=== PATIENT | female | born 1965 | race Caucasian/White ===

== ENCOUNTER → 2018-09-06 14:28 | Outpatient (CLI) | payer OTHER, SELFPAY ==
--- NOTE | 2018-09-06 14:31 | DI.MRI.S_ITS ---
PROCEDURE: MR LUMBAR SPINE WO CON INDICATIONS: Lumbosacral spondylosis with left L5 radicular TECHNIQUE: Noncontrast sagittal T1 spin echo and T2 fast echo, sagittal STIR, axial T1 and T2 fast spin echo through the lumbar spine. In cases with scoliosis, additional coronal T2 fast spin echo may be performed. COMPARISON: [facility], MR, L-SPINE WITHOUT CONTRAST, 03/29/2013, 19:15. FINDINGS: Image quality: Excellent. Alignment and Curvature: There is normal bony alignment. Bone Marrow: Marrow is of normal overall signal. No acute vertebral body compression fractures. Spinal Cord: Conus medullaris terminates at the T12-L1 level where there is moderately severe degenerative disc disease and a small posterior transverse disc bulge that slightly narrows the AP dimension of the spinal canal but does not impinge on the individual nerve roots. Facet osteoarthrosis mild at this level without significant foraminal stenosis. Visualized cord demonstrates normal signal and size. Paraspinous Soft Tissues: No paravertebral masses. L1-L2: Normal appearance except for mild facet osteoarthritis. L2-L3: Degenerative disc I. reduction is mild, but there also is a mild degree of disc desiccation. Facet osteoarthritis is moderate to moderately severe, and allows grade one antral listhesis of L2 on L3. This causes mild crowding of nerve roots within the thecal sac at this level, producing mild spinal stenosis. There is associated foraminal stenosis that appears slightly greater on the left than the right, representing a progression from prior degenerative changes in 2012. L3-L4: The degenerative disc I. reduction and disc desiccation has only slightly worsened from 2012 and there is a mild posterior broad-based transverse disc bulge. Facet osteoarthritis is symmetric but moderately severe and causes mild spinal stenosis and mild to moderate foraminal stenosis with potential for significant impingement on the course of the L3 nerve roots equally. L4-L5: Normal appearance except for mild degenerative facet osteoarthritis, with no associated subluxation and only minimal foraminal stenosis. L5-S1: Normal appearance except for mild degenerative facet disease.. IMPRESSION: There has been mild interval worsening of degenerative disc disease and facet osteoarthritis producing relatively mild spinal stenosis and somewhat more prominent symmetric foraminal stenosis as discussed in detail by level in the body of the report above. No trauma is found, no prior compression fracture is seen. No disc herniation is present. Dictated by: Gunnar Gr M.D. on 09/06/2018 at 17:27 Approved by: Gunnar Gr M.D. on 09/06/2018 at 17:33
--- NOTE | 2018-09-06 14:31 | DI.MRI.S_ITS ---
PROCEDURE: MR CERVICAL SPINE WO CON INDICATIONS: Lumbosacral spondylosis with left L5 radicular TECHNIQUE: Noncontrast sagittal T1 spin echo and T2 fast spin echo, sagittal STIR, foraminal oblique sagittal T2 fast spin echo, and axial gradient echo or T2 fast spin echo through the cervical spine. COMPARISON: [facility], MR, MR LUMBAR SPINE WO CON, 09/06/2018, 15:21. FINDINGS: Image quality: Diagnostic, with note made of motion artifact. Alignment and Curvature: There is normal bony alignment. Bone Marrow: Marrow demonstrates normal overall signal. Spinal Cord: Visualized spinal cord has normal size and signal. No cerebellar tonsillar herniation. Paraspinous Soft Tissues: No paravertebral masses. Prevertebral soft tissues are normal in thickness. C2-C3: The disc height is well-preserved. Loss of disc signal is seen at this level. A mild degree of generalized disc osteophyte complex is seen. No significant neural foraminal or central canal narrowing are seen. C3-C4: The disc height is well-preserved. Loss of disc signal is seen at this level. A mild degree of generalized disc osteophyte complex is seen. Mild to moderate facet hypertrophy is seen, right worse than left. There is mild right-sided and mild to moderate left-sided neural foraminal narrowing seen. Mild central canal narrowing is seen. C4-C5: Mild loss of disc height is seen. Loss of disc signal is seen. Moderate generalized disc osteophyte complex is seen. There is moderate right-sided and mild left-sided hypertrophy seen. There is moderate to severe right-sided and mild to moderate left-sided neural foraminal narrowing seen. At least moderate central canal narrowing is seen, as on series 3 image 22. C5-C6: Mild loss of disc height is seen. Loss of disc signal is seen. Moderate generalized disc osteophyte complex is seen. There is moderate right-sided and mild left-sided facet hypertrophy seen. There is moderate to severe right-sided and mild to moderate left-sided neural foraminal narrowing seen. Moderate central canal narrowing is seen. C6-C7: Moderate loss of disc height is seen. Loss of disc signal is seen. Moderate generalized disc osteophyte complex is seen. Mild to moderate facet hypertrophy is seen. There is moderate to severe bilateral neural foraminal narrowing seen, left worse than right. Moderate to severe central canal narrowing is seen, with associated mass effect upon the ventral spinal cord, as on series 3 image 31. C7-T1: The disc height and disk signal are well-preserved. Mild to moderate disc osteophyte complex is seen. Mild facet joint hypertrophy is seen. There is moderate right-sided and mild to moderate left-sided neural foraminal narrowing seen. Mild central canal narrowing is seen. IMPRESSION: Multiple levels of cervical spine degenerative change are seen, which are most prominent at the C6-C7 level. Dictated by: Julio Calderon M.D. on 09/06/2018 at 16:26 Approved by: Julio Calderon M.D. on 09/06/2018 at 16:31
== END ==
PROVIDERS: PCP Family Medicine; Visit Provider Physical Medicine & Rehabilitation
DX: M47.27 Other spondylosis with radiculopathy, lumbosacral region (principal); M51.16 Intervertebral disc disorders with radiculopathy, lumbar region; M47.26 Other spondylosis with radiculopathy, lumbar region; M48.061 Spinal stenosis, lumbar region without neurogenic claudication; M48.02 Spinal stenosis, cervical region
CPT/HCPCS: 72141; 72148

== ENCOUNTER 2018-11-01 12:29 | Outpatient (CLI) | payer OTHER, SELFPAY ==
[2018-11-01] VITALS (7 sets, daily range): BP systolic 103–115; BP diastolic 68–83; PULSE 72–85; RESP 16–24; TEMP 36.3; O2SAT 98–100
--- NOTE | 2018-11-01 12:30 | DI.RAD.S_ITS ---
PROCEDURE: PAIN L/SI FACET INJ/BLK 1STL INDICATIONS: SPONDYLOSIS FINDINGS: Fluoroscopic spot filming was performed to verify placement of spinal needles at the L2-L3, L3-L4 facet level(s), as labeled on the films. Appropriate location(s) of the needle tip(s) was confirmed by injection of iodinated contrast. Dictated by: Chevy Dowling M.D. on 11/01/2018 at 16:34 Approved by: Chevy Dowling M.D. on 11/01/2018 at 16:35
[2018-11-01] MEDS: MIDAZOLAM 5 MG/5 ML VIAL IV (13:20)
[2018-11-01] MEDS: IOPAMIDOL 15 ML VIAL 3 ML INJ (13:27)
[2018-11-01] MEDS: BUPIVACAINE 0.5% (PF) VIAL 2 ML INJ (13:27)
[2018-11-01] MEDS: LIDOCAINE 1% 20 ML INJ 10 ML INJ (13:28)
[2018-11-01] MEDS: BETAMETHASONE 30 MG/5 ML MDV 12 MG INJ (13:29)
--- NOTE | 2018-11-01 13:31 | PC.NURSE ---
pt tolerated procedure. able to get off table with one person stand by assist. Transferred via W/C to pre procedure room for continued monitoring with Shira AL.
--- NOTE | 2018-11-01 13:35 | PM.PROC.1 ---
Procedures Date/Time Date of procedure: 11/01/18 Time of procedure: 13:35 General Procedure description: The patient tolerated the procedure well without signs or symptoms of complications prior to transfer to the recovery area continued monitoring without incident. The patient was then transferred to the recovery area where they were observed for an appropriate period of time after the injection. The patient reported a VAS score of 9 prior to the procedure and a post-procedure VAS of 0. Total Fluoroscopy Time: 22.7 seconds Total Conscious Sedation Time: 34min POST OP INSTRUCTIONS The patient was provided a Pain Log to continue to record the patient's response to the target-specific procedure prior to the patient's follow-up visit with the referring physician. Additionally, specific post-injection care instructions and a contact number to our office were provided if concerns arise regarding possible complications associated with the procedure are suspected. Complications: none
--- NOTE | 2018-11-01 13:44 | PC.NURSE ---
ASSUMED CARE OF PT IN POST PROC AREA IN STABLE CONDITION
--- NOTE | 2018-11-02 16:22 | PC.NURSE ---
Follow up call made and patient wasn't available so message left that should she have any questions or concerns she can call the office.
== END 2018-11-01 13:58 | disposition home or self-care (01) ==
LOC: RAD 12:29
PROVIDERS: PCP Family Medicine; Visit Provider Physical Medicine & Rehabilitation
DX: M47.817 Spondylosis without myelopathy or radiculopathy, lumbosacral region (principal)
CPT/HCPCS: 64493; 64494; 99152; J0702; J2250

== ENCOUNTER 2019-01-25 08:15 | Outpatient (CLI) | payer OTHER, SELFPAY ==
[2019-01-25] VITALS (8 sets, daily range): BP systolic 99–117; BP diastolic 63–84; PULSE 69–75; RESP 16; TEMP 36.1; O2SAT 98–100
--- NOTE | 2019-01-25 08:17 | DI.RAD.S_ITS ---
PROCEDURE: PAIN C/T INTERLAMINAR INJECT INDICATIONS: cervical spondylosis with radiculopathy FINDINGS: Fluoroscopic spot filming was performed to verify placement of spinal needles at the C6-7 posterior midline, as labeled on the films. Appropriate location(s) of the needle tip(s) was confirmed by injection of iodinated contrast. IMPRESSION: Successful dorsal interlaminar notch localization for epidural steroid injection, C6-7 level. Dictated by: Gunnar Gr M.D. on 01/25/2019 at 9:31 Approved by: Gunnar Gr M.D. on 01/25/2019 at 9:32
[2019-01-25] MEDS: ONDANSETRON 4 MG/2 ML INJ IV (09:05)
[2019-01-25] MEDS: MIDAZOLAM 5 MG/5 ML VIAL IV (09:05)
--- NOTE | 2019-01-25 09:24 | PM.PROC.1 ---
Procedures Date/Time Date of procedure: 01/25/19 Time of procedure: 09:24 General Procedure description: PREOP DIAGNOSIS 1. CERVICAL STENOSIS, 2. CERVICAL HNP WITH UPPER EXTREMITY RADICULAR FEATURES, POST OP DIAGNOSIS 1. CERVICAL STENOSIS, 2. CERVICAL HNP WITH UPPER EXTREMITY RADICULAR FEATURES, PROCEDURES 1. FLUORSCOPICALLY GUIDED CONTRAST CONTROLLED INTERLAMINAR EPIDURAL STEROID INJECTION - C6/7 TL SCOTT PHYSICIAN: DO BERTHA Sheth Karoline is referred for by Dr. Cash treatment of Cervical HNP with Upper Extremity Paresthesias. FINDINGS Cervical Stenosis due to disc deterioration and nerve root irritation and nerve root irritation DESCRIPTION OF PROCEDURE Fluoroscopically guided, contrast-controlled C6/7 translaminar epidural steroid injection with conscious sedation. Following denial of allergy and review of potential side effects and complications, including, but not necessarily limited to, infection, allergic reaction, local tissue breakdown, temporary as well as permanent nerve injury, stroke, paralysis, and possible , the patient indicated that patient understood and agreed to proceed. An informed consent document was signed by the patient, witnessed by a nurse, and placed in the patient's chart. Additionally, other treatment options including modalities, medications, and physical therapy were reviewed with the patient. After review of previous anaesthesic history and IV conscious sedation the patient was deemed safe to proceed with todays procedure with IV conscious sedation as ASA class II designation. Safety time-out was performed to confirm patient ID, procedure to be performed and site of procedure. IV sedation was accomplished with a combination of 2mg of Versed administered by the RN after DO order, titrated to patient comfort during the course of the procedure while the patient remained responsive to all verbal commands. In the prone position, following sterile prep and drape of the cervical region, the C6/7 translaminar space was identified fluoroscopically. The skin was anesthetized via a 25-gauge 1.5-inch needle with 1% lidocaine solution. At this point, a 25-gauge, 2.5-inch short bevel spinal needle was atraumatically introduced and advanced under fluoroscopic guidance into epidural space at the C6/7 translaminar space. Depth was confirmed on lateral view. Radiological data, including multiple fluoroscopic views of the cervical spine, reveal a spinal needle at the C6/7 translaminar space. Lateral views then show placement of the needle in the epidural space. Subsequent views show contrast material flowing superiorly and inferiorly in the epidural space. DSA fluoroscopy with live contrast injection, once again, confirmed no vascular or intrathecal uptake. At this point, using loss of resistance technique with saline and air, the epidural space was entered. Following negative aspiration, injection of approximately 1.5 cc of Isovue-200 with live fluoroscopy in the AP view confirmed epidural flow in the epidural space without vascular or intrathecal uptake observed. Subsequently, a test dose of 1 cc of 1% lidocaine solution was injected and patient was observed for two minutes without signs or symptoms of complications, including abdominal pain, shortness of breath, bilateral upper or lower extremity weakness, nausea and vomiting, prior to steroid injection. At this point, 2cc or 20mg of dexamethasone was then injected without incident. The patient tolerated the procedure well without signs or symptoms of complications prior to being transferred to the recovery area for further monitoring, The patient was then transferred to the recovery area where they were observed for an appropriate period of time after the injection. The patient reported a VAS score of 6 prior to the procedure and a post-procedure VAS of 0. Total Fluoroscopy Time: 37.0 seconds Total Conscious Time: 24min POST OP INSTRUCTIONS The patient was provided a Pain Log to continue to record their response to the target-specific procedure prior to follow-up visit with the referring provider. Additionally, specific post-injection care instructions and a contact number to our office were provided if concerns arise regarding possible complications associated with the procedure are suspected. Woo Rutledge, Complications: none
--- NOTE | 2019-01-25 09:27 | PC.NURSE ---
pt tolerated procedure, able to get up off table with standby assist. Transferred pt via wheelchair to pre procedure room for continued monitoring with Shira AL.
[2019-01-25] MEDS: LIDOCAINE 1% 20 ML INJ 5 ML INJ (09:28)
[2019-01-25] MEDS: IOPAMIDOL 15 ML VIAL 3 ML INJ (09:28)
[2019-01-25] MEDS: DEXAMETHASONE 10 MG/ML VIAL 20 MG INJ (09:29)
--- NOTE | 2019-01-25 09:29 | PC.NURSE ---
ACCEPTED CARE OF PT IN POST PROC AREA IN STABLE CONDITION
== END 2019-01-25 09:41 | disposition home or self-care (01) ==
LOC: RAD 08:16
PROVIDERS: PCP Family Medicine; Visit Provider Physical Medicine & Rehabilitation
DX: M48.02 Spinal stenosis, cervical region (principal); M50.123 Cervical disc disorder at C6-C7 level with radiculopathy
CPT/HCPCS: 62321; 99152; J1100; J2250; J2405; J3010

== ENCOUNTER → 2021-10-20 08:43 | Outpatient (CLI) | payer OTHER, SELFPAY ==
[2021-10-20 11:38] LABS: COVID19 -Nasal RAPID Negative (Negative)
== END ==
PROVIDERS: PCP Family Medicine; Visit Provider Nurse Practitioner Family
DX: Z20.822 Contact with and (suspected) exposure to COVID-19 (principal)
CPT/HCPCS: 87635

== ENCOUNTER 2021-10-21 08:27 | Day surgery (SDC) | payer OTHER, SELFPAY ==
[2021-10-21 09:15] VITALS: BP 121/76; PULSE 73; RESP 18; TEMP 36.7; O2SAT 100; BMI 28.8
[2021-10-21] MEDS: PROPARACAINE 0.5% OPHTH SOL 2 DROPS EYE-OP (09:23)
[2021-10-21] MEDS: CATARACT EYE COMPOUND (10 DROPS/SYRINGE) 3 DROPS EYE-OP (09:25)
--- NOTE | 2021-10-21 10:04 | PM.PREOP ---
Pre-operative Note Interval Note History & Physical reviewed/Exam performed by Physician: Yes Changes to H&P: No
--- NOTE | 2021-10-21 10:04 | PM.OP.1 ---
Operative Date/Time/Diagnoses Pre-op diagnosis: Nuclear cataract right eye Procedure & Clinicians Procedure: Cataract Surgery Same procedure as scheduled: Yes Surgeon: Osito Franco Anesthesia Type: MAC +/- and Sedation Operative Notes Procedure in detail: Patient brought to the operating suite. Tetracaine drops placed in the right eye. Patient was prepped and draped in sterile manner. Wire lid speculum was placed in the eye. Betadine drops were placed on the eye. This was irrigated. Lidocaine jelly was placed on the eye. A paracentesis port was created with a side-port blade. 0.1 mL 1% preservative free lidocaine was injected into the anterior chamber. The anterior chamber was deepened with viscoelastic. 2.6 mm keratome was used to create a temporal clear corneal incision. Cystotome and Utrata forceps were used to create continuous tear capsulorrhexis. Balanced salt solution was used to hydro dissect the nucleus. The phacoemulsification handpiece was inserted and the nucleus was removed using the stop and chop technique. The irrigation aspiration handpiece was inserted and the remaining cortex was removed. Anterior chamber was deepened with viscoelastic. An Welch DIB00 intraocular lens with a power of 20.0 was injected into the capsular bag. Irrigation aspiration handpiece was inserted and the remaining viscoelastic was removed. The incision was leaking so a 10-0 nylon suture was used to close the incision. Incision was hydrated with balanced salt solution and found to be leak free with pressure with Weck-Shima sponges. 0.1 mL Vigamox injected anterior chamber. 0.3 mL Kenalog 10 mg was injected subconjunctivally. Lid speculum was removed. The patient left the operating room in excellent condition. Complications: none Post-operative Condition: stable Disposition: same day surgery
[2021-10-21] MEDS: HYALURONATE SODIUM 30 MG-10 MG/ML SYRINGES 1 BOX INTRAOCULA (10:24)
[2021-10-21] MEDS: PHENYLEPHRINE/LIDOCAINE VIAL (OR) 0.2 ML EYE-OP (10:24)
[2021-10-21] MEDS: TRIAMCINOLONE 50 MG/5 ML VIAL INJ (10:24)
[2021-10-21] MEDS: MOXIFLOXACIN INJ 4 MG/0.8 ML VIAL 0.5 MG EYE-OP (10:24)
[2021-10-21] MEDS: LIDOCAINE 2% (GLYDO) 6 ML GEL TOP (10:25)
[2021-10-21] MEDS: TETRACAINE 0.5% OPHTH DROPS 4 ML 2 DROPS EYE-OP (10:25)
[2021-10-21] MEDS: BALANCED SALT IRRIG SOLN NO.2 500 ML, EPINEPHrine 1 MG IRR (10:25)
[2021-10-21 10:49] VITALS: BP 116/23; PULSE 51; RESP 15; TEMP 36.7; O2SAT 99
== END 2021-10-21 11:03 | disposition home or self-care (01) ==
PROVIDERS: PCP Family Medicine; Referring Provider Ophthalmology; Visit Provider Ophthalmology
PROC: (CPT 66984; principal; 2021-10-21 10:15)
DX: H25.11 Age-related nuclear cataract, right eye (principal); E78.5 Hyperlipidemia, unspecified
CPT/HCPCS: 66984; J0171; J2250; J3301